=== PATIENT | female | born 1950 | race Caucasian/White ===

== ENCOUNTER → 2024-02-04 15:02 | Outpatient (REF) | payer MEDICARE, OTHER, SELFPAY | LOC: RAD 15:02 | PROVIDERS: ATTENDING PHYSICIAN Physician Assistant Medical | DX: M79.89 Other specified soft tissue disorders (principal); M79.662 Pain in left lower leg | CPT/HCPCS: 93971 ==

== ENCOUNTER → 2024-03-23 15:42 | Outpatient (REF) | payer MEDICARE, OTHER, SELFPAY | LOC: HWWDC 15:42 | PROVIDERS: ATTENDING PHYSICIAN Physician Assistant Medical | DX: Z12.31 Encounter for screening mammogram for malignant neoplasm of breast (principal) | CPT/HCPCS: 77063; 77067 ==

== ENCOUNTER → 2024-05-21 10:39 | Outpatient (REF) | payer MEDICARE, OTHER, SELFPAY | LOC: RAD 10:39 | PROVIDERS: ATTENDING PHYSICIAN Obstetrics & Gynecology; FAMILY PHYSICIAN Physician Assistant Medical | DX: Z13.820 Encounter for screening for osteoporosis (principal); M81.0 Age-related osteoporosis without current pathological fracture | CPT/HCPCS: 77080 ==

== ENCOUNTER 2024-08-12 10:16 | Emergency (ER) | payer MEDICARE, OTHER, SELFPAY ==
[2024-08-12] VITALS (7 sets, daily range): BP systolic 118–159; BP diastolic 68–91
[2024-08-12] MEDS: LOW STRENGTH ASPIRIN 324 MG PO (11:52)
[2024-08-12 12:12] LABS: % Basophils 0.9 % (0-2); % Eosinophils 0.9 % (0-6); % Immature Granulocytes 0.2 % (0-0.5); % Lymphocytes 18.4 % (20.5-51.1); % Monocytes 8.9 % (1.7-9.3); % Neutrophils 70.7 % (42.2-75.2); Absolute Lymphocytes 0.9 10^3/uL (1.2-3.4); Absolute Monocytes 0.4 10^3/uL (0.1-0.6); Absolute Neutrophils 3.3 10^3/uL (1.4-6.5); Hematocrit 36.6 % (37.0-47.0); Hemoglobin 12.4 g/dL (12.0-16.0); Mean Corp Hgb Conc. 33.9 g/dL (33.0-37.0); Mean Corpuscular Hgb 33.2 pg (27.0-31.0); Mean Corpuscular Volume 98.1 fL (81.0-99.0); Mean Platelet Volume 11.5 fL (7.4-10.4); Nucleated Red Blood Cells % 0 %; Platelet Count 160 10^3/uL (130-400); Red Blood Cell Count 3.73 10^6/uL (4.20-5.40); Red Cell Dist. Width 12.4 % (11.5-14.5); White Blood Cell Count 4.6 10^3/uL (4.8-10.8)
[2024-08-12 12:22] LABS: ALT (SGPT) 18 U/L (0-35); AST (SGOT) 25 U/L (14-36); Albumin 4.3 g/dl (3.5-5.0); Alkaline Phosphatase 45 U/L (38-126); Blood Urea Nitrogen 15 mg/dl (7-17); Calcium 9.7 mg/dl (8.4-10.2); Carbon Dioxide 29 mmol/L (22-30); Chloride 100 mmol/L (98-107); Glucose 100 mg/dl (70-99); Magnesium 1.6 mg/dl (1.6-2.3); Potassium 4.6 mmol/L (3.5-5.1); Sodium 139 mmol/L (135-145); Total Bilirubin 0.3 mg/dl (0.2-1.3); Total Protein 6.8 g/dl (6.3-8.2); eGFR > 60.00
--- NOTE | 2024-08-12 12:23 | ED.GENMED ---
History of Present Illness
General
Chief Complaint: Breathing Problem
Source: patient
Exam Limitations: none
Time Seen by Provider: 08/12/24 11:13
Nursing documentation reviewed up to this point in time: agreed with
History of Present Illness
History of Present Illness:
73-year-old female past medical history of CAD status post 6 total stents most recently 3 years ago, IBS, diabetes presenting to the emergency department today with concerns of a burning pressure to her chest over the past week that seems to be
worse with exertion initially but this morning had an episode when she was watching her grandchildren that was not related to exertion. Symptoms are improved at this point. Claims have some mild associated shortness of breath no diaphoresis no
nausea or vomiting. Mainly describes the symptoms as burning but does have a slight pressure component. No referred symptoms or radiation.
Past History
Past History
ED Past Medical History: CAD, HTN, NIDDM and Other (irritable bowel syndrome)
ED Past Surgical History: Cardiac (Cardiac stents 2018, 2020), Urological (Bladder repair) and Other (blepharoplasty 2017)
Social History
Tobacco: Non-smoker
Alcohol: None
Drug: None
Personal:
Living: with family
Family History
Family History: Other (reviewed and noncontributory)
Review of Systems
Review of Systems
Allergies reviewed?: Yes
All Other Systems: ROS reviewed and negative except as documented in HPI and ROS
Phy Exam
Physical Exam
Physical Exam:
GENERAL: Alert , in no apparent distress
EYE: pupils equal and reactive
NECK: Supple, no significant adenopathy.
ENT: o/p clr, mmm.
CARDIAC: Regular rate and rhythm .
LUNGS: Clear breath sounds bilaterally, no acute respiratory distress, no wheezes/rales/rhonchi
ABDOMEN: Soft, without focal tenderness, no r/g, no cvat
NEUROLOGICAL: Alert and oriented, no focal neuro deficits
SKIN: Warm and dry, skin intact.
MUSCULOSKELETAL: No edema, well perfused.
PSYCH: Normal and appropriate interaction.
Scores
Heart Failure Risk
Heart Failure Risk Score: Not Applicable
Course
Orders/Labs/Results
Orders:
Orders
08/12/24 10:17
EKG [Electrocardiogram (*1)] Urgent
Reason for Study: Shortness of Breath
EKG- Treatment ONCE
08/12/24 11:44
Aspirin Chewable [Low Strength Aspirin] 324 mg PO NOW STA
CR Chest - 2 Views Urgent
Comment:
Reason For Exam: cp
08/12/24 11:53
Complete Blood Count/With Diff Urgent
Comprehensive Metabolic Panel Urgent
Magnesium Urgent
Troponin I Urgent
08/12/24 14:06
EKG [Electrocardiogram (*1)] Urgent
Reason for Study: Chest Pain
EKG- Treatment ONCE
08/12/24 14:21
Troponin I Urgent
Abnormal Lab Results
08/12/24
11:53
WBC 4.6 L 10^3/uL
(4.8-10.8)
RBC 3.73 L 10^6/uL
(4.20-5.40)
Hct 36.6 L %
(37.0-47.0)
MCH 33.2 H pg
(27.0-31.0)
MPV 11.5 H fL
(7.4-10.4)
Absolute Lymphs (auto) 0.9 L 10^3/uL
(1.2-3.4)
Lymphocytes % 18.4 L %
(20.5-51.1)
Glucose 100 H mg/dl
(70-99)
08/12/24 11:53
08/12/24 11:53
Vital Signs
Initial and Last Documented VS:
Initial Vital Signs
Temp Pulse Resp BP Pulse Ox
98.3 F 70 18 159/91 100
08/12/24 10:25 08/12/24 10:25 08/12/24 10:25 08/12/24 10:25 08/12/24 10:25
Last Documented Vital Signs
Temp Pulse Resp BP Pulse Ox
98.3 F 68 16 145/78 94
08/12/24 10:25 08/12/24 14:25 08/12/24 14:25 08/12/24 14:28 08/12/24 14:30
MDM/Problems Addressed
MDM/Problems Addressed:
73-year-old female presenting to the emergency department with intermittent chest burning discomfort of central chest over the past week or so episode this morning. 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
today. Asymptomatic during my assessment. Does have a history of heart disease. On arrival vital signs are normal EKG without emergent findings. Labs unremarkable initial troponin negative. 3-hour troponin and EKG were obtained without acute
abnormalities patient without evidence of. No evidence of Emergent condition or ACS at this time has very close follow-up tomorrow. Stable for outpatient management return precautions given.
*Critical Care Note
Total Time (30-74mins, 75-104mins- exclusive of procedures): Not Applicable
ED Attending Note
-
Portions of this chart may have been created with voice recognition software.� Occasional wrong word or��sound alike� substitutions may have occurred due to the inherent limitations of voice recognition software.
Discharge Plan
Departure
Prescriptions:
No Action
amlodipine 5 MG tablet
5 mg PO QPM
metoprolol succinate 25 MG tablet extended release 24 hr
25 mg PO BID
Viviscal
1 tab PO DAILY
metformin 1,000 MG tablet
1,000 mg PO BID Qty: 0 0RF
loperamide 2 mg Tablet
2 mg PO TIDPRN PRN (Reason: DIARRHEA)
clopidogrel [Plavix] 75 mg Tablet
75 mg PO DAILY
aspirin 81 mg Tablet,Delayed Release (Dr/Ec)
81 mg PO HS
garlic 1,000 mg Capsule
2,400 mg PO QPM
terbinafine HCl 250 mg Tablet
250 mg PO DAILY
losartan 100 mg Tablet
50 mg PO BID
cholecalciferol (vitamin D3) [Vitamin D3] 10 mcg (400 unit) Tablet
10 mcg PO DAILY
ferrous sulfate 28 mg iron Tablet
28 mg PO HS
Visbiome 112.5 billion cell Capsule
1 cap PO DAILY
atorvastatin [Lipitor] 80 mg Tablet
80 mg PO HS
Referrals:
Briseyda Griffin PA-C [Family Provider] -
Interventions
Interventions:
*Risk Screen - Suicide Last Done: 08/12/24 10:25
*General Assessment Last Done: 08/12/24 10:25
*Neglect/Abuse Screening Last Done: 08/12/24 10:25
ED- Fall Risk Assessment Last Done: 08/12/24 11:26
*ED COVID-19 Vaccine History Last Done: 08/12/24 10:25
ED- Cardiac Assessment Last Done: 08/12/24 11:26
ED- Pulmonary Assessment Last Done: 08/12/24 11:26
Discharge Date and Time
Print Language: CITIZ[place]
[2024-08-12 12:32] LABS: Troponin I < 0.012 ng/ml
[2024-08-12 15:00] LABS: Troponin I < 0.012 ng/ml
== END 2024-08-12 16:45 | disposition home or self-care (01) ==
LOC: EMR 10:16
PROVIDERS: Physician Assistant; EMERGENCY PHYSICIAN Emergency Medicine; FAMILY PHYSICIAN Physician Assistant Medical
DX: R07.89 Other chest pain (principal); K58.9 Irritable bowel syndrome, unspecified; E11.9 Type 2 diabetes mellitus without complications; I10 Essential (primary) hypertension; I25.10 Atherosclerotic heart disease of native coronary artery without angina pectoris; Z95.5 Presence of coronary angioplasty implant and graft
CPT/HCPCS: 99283; 71046; 80053; 83735; 84484; 85025; 93005

== ENCOUNTER 2024-12-18 16:02 | Emergency (ER) | payer MEDICARE, OTHER, SELFPAY ==
[2024-12-18 16:09] VITALS: BP 188/93
[2024-12-18 18:58] VITALS: BMI 25.3
[2024-12-18 19:01] VITALS: BP 157/78
--- NOTE | 2024-12-18 19:12 | ED.MUSCINJ ---
HPI-Injury
General
Chief Complaint: Musculo-Skeletal Complaint
Source: patient
Exam Limitations: none
Time Seen by Provider: 12/18/24 19:03
History of Present Illness-Injury
Initial Injury comments:
74-year-old female presents with left forearm discomfort starting today. She pulled her trash compactor out and felt a crunching sensation. Her forearm swelled and it was tender to the touch. There was no chest pain or shortness of breath. No
other injury. No associated numbness or tingling. She states since getting the ultrasound and waiting in the waiting room her symptoms have resolved. No other complaints at this time
Past History
Past History
ED Past Medical History: CAD, HTN, NIDDM and Other (irritable bowel syndrome)
ED Past Surgical History: Cardiac (Cardiac stents 2019, 2020), Urological (Bladder repair) and Other (blepharoplasty 2016)
Social History
Tobacco: Non-smoker
Alcohol: None
Drug: None
Personal:
Living: with family
Family History
Family History: Other (reviewed and noncontributory)
Phy Exam
Physical Exam
Physical Exam:
General: Well-appearing female no acute respiratory distress
HEENT: Normocephalic atraumatic
Heart: Regular rate and rhythm
Lungs: Clear no wheeze
Musculoskeletal exam: Left forearm is nontender not swollen without any deformities. She has full active range of motion of the left elbow and wrist. There is no increased pain with resisted wrist extension and flexion
Vascular: 2+ radial and ulnar pulses left wrist with good cap refill to the fingers
Neurologic: Good sensation left hand
Injury Course
Orders/Labs/Results
Orders:
Orders
12/18/24 16:11
US Arms, Left [US Periph Venous UPPER Ext LT] Urgent
Comment:
Reason For Exam: swelling
MDM/Problems Addressed
Differential Diagnosis Includes:
Left forearm pain now resolved. She describes very tender to the touch forearm that was swollen. Ultrasound was negative for DVT. Suspect possible forearm strain or muscle cramp. No signs of cardiac related symptoms. There is no associated neck
pain to suggest radiculopathy. No fall or trauma to suggest any bony injury. With resolution of symptoms no indication for any further intervention. Stable for discharge
*Critical Care Note
Total Time (30-74mins, 75-104mins- exclusive of procedures): Not Applicable
ED Attending Note
-
Portions of this chart may have been created with voice recognition software.� Occasional wrong word or��sound alike� substitutions may have occurred due to the inherent limitations of voice recognition software.
Discharge Plan
Departure
Patient Disposition: Home (Routine Discharge)
Date of Disposition: 12/18/24
Time of Disposition: 19:16
Patient with high blood pressure during this ER visit?: No
Discharge Problem:
Forearm pain
Instructions: Muscle and Bone Pain (DC)
Prescriptions:
No Action
amlodipine 5 MG tablet
5 mg PO QPM
metoprolol succinate 25 MG tablet extended release 24 hr
25 mg PO BID
Viviscal
1 tab PO DAILY
metformin 1,000 MG tablet
1,000 mg PO BID Qty: 0 0RF
loperamide 2 mg Tablet
2 mg PO TIDPRN PRN (Reason: DIARRHEA)
clopidogrel [Plavix] 75 mg Tablet
75 mg PO DAILY
aspirin 81 mg Tablet,Delayed Release (Dr/Ec)
81 mg PO HS
garlic 1,000 mg Capsule
2,400 mg PO QPM
terbinafine HCl 250 mg Tablet
250 mg PO DAILY
losartan 100 mg Tablet
50 mg PO BID
cholecalciferol (vitamin D3) [Vitamin D3] 10 mcg (400 unit) Tablet
10 mcg PO DAILY
ferrous sulfate 28 mg iron Tablet
28 mg PO HS
Visbiome 112.5 billion cell Capsule
1 cap PO DAILY
atorvastatin [Lipitor] 80 mg Tablet
80 mg PO HS
Referrals:
Briesyda Griffin PA-C [Family Provider] -
Activity Restrictions/Additional Instructions:
Please return here if needed. As discussed, the ultrasound was negative for blood clot
Interventions
Interventions:
*Risk Screen - Suicide Last Done: 12/18/24 18:58
*General Assessment Last Done: 12/18/24 16:09
*Neglect/Abuse Screening Last Done: 12/18/24 18:58
*ED- Fall Risk Assessment Last Done: 12/18/24 18:58
*ED COVID-19 Vaccine History Last Done: 12/18/24 18:58
ED-Musculoskeletal Assessment Last Done: 12/18/24 18:58
Discharge Date and Time
Print Language: CITIZEN OF [place]
== END 2024-12-18 19:19 | disposition home or self-care (01) ==
LOC: EMR 16:02
PROVIDERS: EMERGENCY PHYSICIAN Emergency Medicine; FAMILY PHYSICIAN Physician Assistant Medical
DX: M79.632 Pain in left forearm (principal); E11.9 Type 2 diabetes mellitus without complications; I10 Essential (primary) hypertension; I25.10 Atherosclerotic heart disease of native coronary artery without angina pectoris; Z95.5 Presence of coronary angioplasty implant and graft
CPT/HCPCS: 99284; 93971

== ENCOUNTER → 2025-05-12 08:10 | Outpatient (REF) | payer MEDICARE, OTHER, SELFPAY | LOC: HWWDC 08:10 | PROVIDERS: ATTENDING PHYSICIAN Physician Assistant Medical | DX: Z12.31 Encounter for screening mammogram for malignant neoplasm of breast (principal) | CPT/HCPCS: 77063; 77067 ==

== ENCOUNTER → 2025-05-20 10:39 | Outpatient (REF) | payer MEDICARE, OTHER, SELFPAY | LOC: WDC 10:39 | PROVIDERS: ATTENDING PHYSICIAN Physician Assistant Medical | DX: R92.8 Other abnormal and inconclusive findings on diagnostic imaging of breast (principal) | CPT/HCPCS: 76642 ==